=== PATIENT | female | born 1965 | race African-American/Black ===

== ENCOUNTER 2023-01-16 15:40 | Emergency (ER) | payer MEDICAID, OTHER ==
[~2023-01-16] VITALS: Ht 162.6 cm; Wt 56.0 kg
[2023-01-16 15:44] VITALS: BP 131/72; PULSE 84; RESP 18; TEMP 98; O2SAT 100
== END 2023-01-16 23:44 | disposition left against medical advice (07) ==
LOC: ER 15:40
DX: M79.606 Pain in leg, unspecified (principal); Z53.21 Procedure and treatment not carried out due to patient leaving prior to being seen by health care provider
CPT/HCPCS: 99281